=== PATIENT | female | born 1975 | race Caucasian/White ===

== ENCOUNTER 2022-12-22 08:11 | Emergency (ER) | payer BC ==
[~2022-12-22] VITALS: Ht 170.2 cm; Wt 58.2 kg
[2022-12-22 08:28] VITALS: BP 121/67; PULSE 84; RESP 16; TEMP 97.7; O2SAT 99
== END 2022-12-22 10:23 | disposition left against medical advice (07) ==
LOC: ER 08:12
DX: M54.2 Cervicalgia (principal); Z53.21 Procedure and treatment not carried out due to patient leaving prior to being seen by health care provider
CPT/HCPCS: 99281